=== PATIENT | female | born 1970 | race Caucasian/White ===

== ENCOUNTER 2020-12-22 11:13 | Emergency (ER) | payer SELFPAY ==
[~2020-12-22 11:13] MED LIST: Iopamidol 370 76% 100 ML VIAL ONE; Sodium Chloride 0.9% 1,000 ML BAG ONE
[2020-12-22] MEDS ORDERED: metroNIDAZOLE 500 MG/100 ML BAG ONE (12:08)
[2020-12-22] MEDS ORDERED: Sodium Chloride 0.9% 100 ML ONE ×2 (12:08→17:17)
[2020-12-22] MEDS ORDERED: cefTRIAXone\\ROCEPHIN 2 GM VIAL ONE (12:08)
[2020-12-22] MEDS ORDERED: Morphine 4 MG/ML VIAL ONE (12:32)
[2020-12-22 12:42] LABS: #Basophils 0.1 thou/uL (0.0-0.2); #Eosinphils 0.2 thou/uL (0.0-0.7); #Lymphocytes 1.9 thou/uL (1.20-3.40); #Monocytes 1.1 thou/uL (0.11-0.59); #Neutrophils 12.1 thou/uL (1.40-6.50); %Basophils 0.7 % (0.0-1.0); %Eosinophils 1.6 % (0.0-10.0); %Lymphocytes 12.2 % (21.0-51.0); %Monocytes 7.1 % (0.0-10.0); %Neutrophils 78.4 % (42.0-75.0); Hemoglobin 15.9 g/dL (12.0-16.0); Mean Corpuscular HGB CONC 32.4 g/dL (32.0-36.0); Mean Corpuscular Hemoglobin 28.5 pg (27.0-31.0); Mean Corpuscular Volume 88.1 fL (78.0-98.0); Mean Platelet Volume 9.1 fL (7.4-10.4); Platelet Count 284 thou/uL (130-400); RBC Distribution Width 11.7 % (11.5-14.5); Red Blood Cell (RBC) Count 5.57 mill/uL (4.20-5.40); White Blood Cell (WBC) Count 15.4 thou/uL (4.8-10.8)
[2020-12-22 12:58] LABS: ALT (SGPT) 18 U/L (8-55); AST (SGOT) 17 U/L (5-34); Albumin 4.1 g/dL (3.5-5.0); Alkaline Phosphatase 158 U/L (40-110); Anion Gap 24 mmol/L (10-20); BUN (Urea Nitrogen) 10 mg/dL (9.8-20.1); Bilirubin, Total 0.8 mg/dL (0.2-1.2); Calc. Creatinine Clearance 0 mL/min (70-130); Calcium 10.1 mg/dL (7.8-10.44); Carbon Dioxide 19 mmol/L (22-29); Chloride 101 mmol/L (98-107); Globulin 3.6 g/dL (2.4-3.5); Glucose 306 mg/dL (70-105); Potassium 4.8 mmol/L (3.5-5.1); Protein, Total 7.7 g/dL (6.0-8.3); Sodium 139 mmol/L (136-145)
[2020-12-22] MEDS ORDERED: Sodium Chloride 0.9% 1,000 ML ONE (13:59)
[2020-12-22 14:06] LABS: Base Excess-Venous -5.8 mmol/L (-2.0 to 3.0); Bicarbonate (HCO3v) 22.1 mmol/L (22.0-28.0); CO2 Tension (PvCO2) 50.9 mmHg (42.0-51.0); Calcium, Ionized 1.23 mmol/L (1.15-1.33); Chloride 107 mmol/L (98-107); Hemoglobin - Calc 16.2 g/dL (12.0-16.0); Potassium 4.5 mmol/L (3.5-5.1); Sodium 136 mmol/L (138-145); T. Carbon Dioxide 23.6 mmol/L (22.0-28.0); vO2 Saturation-calc 49.4 % (60.0-85.0)
[2020-12-22] MEDS ORDERED: Ketorolac Tromethamine 30 MG/ML VIAL ONE (15:29)
[2020-12-22 16:56] LABS: Bicarbonate (HCO3v) 16.4 mmol/L (22.0-28.0); CO2 Tension (PvCO2) 33.7 mmHg (42.0-51.0); Calcium, Ionized 1.17 mmol/L (1.15-1.33); Chloride 113 mmol/L (98-107); Hemoglobin - Calc 14.4 g/dL (12.0-16.0); Potassium 4.5 mmol/L (3.5-5.1); Sodium 138 mmol/L (138-145); T. Carbon Dioxide 17.5 mmol/L (22.0-28.0); vO2 Saturation-calc 77.7 % (60.0-85.0)
[2020-12-22 16:58] LABS: Anion Gap 19 mmol/L (10-20); BUN (Urea Nitrogen) 8 mg/dL (9.8-20.1); Calc. Creatinine Clearance 0 mL/min (70-130); Calcium 8.9 mg/dL (7.8-10.44); Carbon Dioxide 16 mmol/L (22-29); Chloride 106 mmol/L (98-107); Glucose 233 mg/dL (70-105); Potassium 4.4 mmol/L (3.5-5.1); Sodium 137 mmol/L (136-145)
[2020-12-22] MEDS ORDERED: NS 0.9% w/ 20 MEQ KCL 1,000 ML ONE (17:17)
[2020-12-22] MEDS ORDERED: Insulin Regular 300 UNITS/3 ML VIAL ONE (17:17)
[2020-12-22] MEDS ORDERED: D5 1/2 NS w/20 mEq KCL 1,000 ML ONE (18:27)
[2020-12-22] MEDS ORDERED: Sodium Chloride 0.9% 50 ML ONE (19:09)
[2020-12-22] MEDS ORDERED: Promethazine HCl 25 MG/ML VIAL ONE (19:09)
[2020-12-22 19:55] LABS: Anion Gap 14 mmol/L (10-20); BUN (Urea Nitrogen) 9 mg/dL (9.8-20.1); Calc. Creatinine Clearance 0 mL/min (70-130); Calcium 8.9 mg/dL (7.8-10.44); Carbon Dioxide 19 mmol/L (22-29); Chloride 108 mmol/L (98-107); Glucose 182 mg/dL (70-105); Potassium 3.7 mmol/L (3.5-5.1); Sodium 137 mmol/L (136-145)
[2020-12-22 19:58] LABS: Base Excess-Venous -4.7 mmol/L (-2.0 to 3.0); Bicarbonate (HCO3v) 20.9 mmol/L (22.0-28.0); Calcium, Ionized 1.19 mmol/L (1.15-1.33); Chloride 108 mmol/L (98-107); Hemoglobin - Calc 14.2 g/dL (12.0-16.0); Potassium 3.6 mmol/L (3.5-5.1); Sodium 140 mmol/L (138-145); T. Carbon Dioxide 22.2 mmol/L (22.0-28.0); vO2 Saturation-calc 42.5 % (60.0-85.0)
[2020-12-22] MEDS ORDERED: Lantus 1000 UNITS/10 ML VIAL ONE (20:21)
== END 2020-12-22 21:20 | disposition short-term general hospital (02) ==
LOC: MADERS 11:13
DX: L03.221 Cellulitis of neck (principal); E10.10 Type 1 diabetes mellitus with ketoacidosis without coma
CPT/HCPCS: 36415; 36416; 70491; 80053; 82330; 82803; 83605; 85025; 96365; 96367; 96375; J0696; J1815; J1885; J2270; J2550; J3480; J3490; J7050; Q9967